=== PATIENT | male | born 1930 | race Caucasian/White ===

== ENCOUNTER 2017-01-12 11:20 | Inpatient (IN) | payer MEDICARE ==
[~2017-01-12] VITALS: Ht 188 cm; Wt 92.2 kg
[~2017-01-12 11:20] MED LIST: ASPI81TA85 PO; ATOR1TAB19 PO; BABY81CH OR; CELEBREX; CEPACOL OR; GLIM2TAB PO; GLIMEPIRIDE OR; LEVA750T PO; LISI10TA4 PO; LISI20TA5 OR; NAME10TA PO; SERT-141 PO; TRAVATAN OU; TYLE325T5 PO; VICO5TAB OR; VICODIN OR; VITA20008 PO; XANA0.25 PO
[2017-01-12 15:28] VITALS: BP 171/90
[2017-01-12 15:29] VITALS: BP 142/90
[2017-01-12] MEDS ORDERED: ONDANSETRON 4MG/2ML VIAL (J2405) IV PRN (15:45)
[2017-01-12] MEDS ORDERED: ACETAMINOPHEN 650 MG SUPP PR PRN (15:45)
[2017-01-12] MEDS: PANTOPRAZOLE 40MG INJ (PROTONIX) (C9113) IV SCH (17:22)
[2017-01-12 17:30] LABS: BASO % 0.2 % (0.0-1.0); EOS # 0.1 K/mm3 (0.0-0.50); EOS % 0.8 % (0.0-3.0); LARGE UNSTAINED CELL # 0.1 K/mm3 (0.0-0.4); LARGE UNSTAINED CELL % 1.2 % (0.0-4.0); LYMPH # 1.5 K/mm3 (1.5-4.5); LYMPH % 16.2 % (24.0-44.0); MEAN CORPUSCULAR HEMOGLOBIN 29.5 pg (27.0-33.0); MEAN CORPUSCULAR HGB CONC 31.2 g/dl (32.0-36.5); MEAN CORPUSCULAR VOLUME 94.4 fl (80.0-96.0); MONO # 0.5 K/mm3 (0.0-0.8); MONO % 5.9 % (0.0-5.0); NEUTROPHILS # 6.9 K/mm3 (1.8-7.7); NEUTROPHILS % 75.7 % (36.0-66.0); PLATELET COUNT, AUTOMATED 143 k/mm3 (150-450); RED CELL DISTRIBUTION WIDTH 13.6 % (11.5-14.5); WHITE BLOOD COUNT 9.1 K/mm3 (4.0-10.0)
[2017-01-12 18:05] LABS: ALBUMIN 2.8 GM/DL (3.2-5.2); ALBUMIN/GLOBULIN RATIO 0.85 (1.00-1.93); ALKALINE PHOSPHATASE 55 U/L (45-117); ALT/SGPT 20 U/L (12-78); ANION GAP 7 MEQ/L (8-16); AST/SGOT 25 U/L (15-37); BILIRUBIN,TOTAL 0.4 MG/DL (0.2-1.0); BLOOD UREA NITROGEN 16 MG/DL (7-18); CALCIUM LEVEL 8.5 MG/DL (8.8-10.2); CARBON DIOXIDE LEVEL 32 MEQ/L (21-32); CHLORIDE LEVEL 113 MEQ/L (98-107); CREATININE FOR GFR 0.84 MG/DL (0.70-1.30); GLOMERULAR FILTRATION RATE > 60.0 (>35); GLUCOSE, FASTING 90 MG/DL (83-110); MAGNESIUM LEVEL 2.1 MG/DL (1.8-2.4); SODIUM LEVEL 152 MEQ/L (136-145); TOTAL PROTEIN 6.1 GM/DL (6.4-8.2)
--- NOTE | 2017-01-12 18:33 | REP ---
Portable chest x-ray: Single view: History: Pneumonia. Comparison study: 09/22/2016. Findings: Cardiomegaly is again observed. There is an area of increased density in the right base consistent with infiltrate and/or atelectasis. This obscures the lateral aspect of the right hemidiaphragm. Remaining lung headley are clear. EKG monitoring electrodes overlie the chest. Impression: Infiltrate versus atelectasis right base. Signed by Rich Cuello MD 01/12/2017 08:06 P
[2017-01-12] MEDS ORDERED: D5W 1,000 ML IV SCH (19:00)
[2017-01-12] MEDS ORDERED: LORazepam 2 MG/ML VIAL (J2060) IV PRN (19:30)
[2017-01-12 20:00] VITALS: BP 165/77
[2017-01-12] MEDS ORDERED: FUROSEMIDE 100 MG/10 ML VIAL (J1940) IV ONE (20:00)
[2017-01-12] MEDS ORDERED: ACETAMINOPHEN TAB 650MG DOSE (2X325MG) PO PRN (20:00)
--- NOTE | 2017-01-12 20:29 | PHACANCOPD ---
PHARMACY VANCOMYCIN DOSING Pt Demographics Demographics Patient Age:86 , Weight:97.000 , Gender: male Adjusted Body Weight Date: 01/12/17, Adjusted Body Weight: Kg Events Past 24 Hours Events Past 24 Hours: YES: Fever, NO: Change in CrCl, Dialysis, Diuretic Therapy, Elevation in WBC, Other, Pending Diagnostics, Pending Procedures Vancomycin Vancomycin indication: decubitis buttocks/sacrum Vancomycin Target Ranges: 15-20 mcg/ml Vancomycin Load Y/N: No Load Dose Date Time Vancomycin Load Dose: Date: Time: Vancomycin Dose Date: 01/12/17. Current Vancomycin Dose: [1g IV q12h] Intermittent Dosing?: No Labs Labs Item Value Date Time White Blood Count 9.1 K/mm3 01/12/17 1717 Creatinine 0.84 MG/DL 01/12/17 1717 Vital Signs Label Value Date Time Patient Temperature 99.4 degrees F 01/12/17 1528 Temperature Source Tympanic 01/12/17 1528 Micro Microbiology 01/12/17 Blood Culture, Received Pending Creatinine Clearance Date:01/12/17. Creatinine Clearance: [72 ml/min]. Pending Labs Vanco trough tonight Assessment and Plan Maintaining Current Dose?: Yes Reason for dose change: Other Pharmacist Note Pharmacist Note Date: 01/12/17. Pharmacist note: pt was transferred from [facility] for a fever of unknown origin, presumed UTI that did not improve since 01/09. Pt has been on IV Zosyn, Rocephin, Vancomycin, Clindamycin and oral fluconazole (800mg loading dose 01/11 pm). Pt is bedridden and requires 24 hour care. He was started on vancomycin 1g IV q12h on 01/09, vancomycin trough drawn before the 3rd dose was 16.8. His last dose of vancomycin was ~10am this morning. Blood and urine cultures from [facility] showed no growth. I have scheduled a trough for tonight to further guide dosing. Jaylan Saravia.D. Jan 12, 2017 20:28
[2017-01-12] MEDS: MEROPENEM INJ 1 GM in D5W MINI-BAG PLUS 100 ML IV SCH (20:58)
[2017-01-12] MEDS ORDERED: levETIRAcetam 250MG TABLET (KEPPRA) PO SCH (21:00)
[2017-01-12] MEDS: ALPRAZolam 0.5 MG TAB PO SCH (21:00)
[2017-01-12] MEDS ORDERED: VANCOMYCIN HCL 1,000 MG, VIAL MATE ADAPTER 1 EACH in D5W 250 ML IV SCH (21:00)
[2017-01-12] MEDS ORDERED: ALPRAZolam 0.5 MG TAB PO SCH (21:00)
[2017-01-12] MEDS ORDERED: ATORVASTATIN 10 MG TAB PO SCH (21:00)
[2017-01-12] MEDS: ACETAMINOPHEN 650 MG SUPP PR PRN (21:36)
[2017-01-12] MEDS: levETIRAcetam INJection 500 MG in D5W MINI-BAG PLUS 100 ML IV SCH (22:29)
[2017-01-12 23:03] LABS: ABG BASE EXCESS 10.3 (-2.0-2.0); ABG HCO3 35.6 MEQ/L (22.0-26.0); ABG PARTIAL PRESSURE O2 71.6 mmHg (75.0-100.0); ABG STANDARD HCO3 34.1 MEQ/L (22.0-26.0); ABG TOTAL CO2 37.1 MEQ/L (23.0-31.0); ABG pH (ARTERIAL) 7.479 UNITS (7.350-7.450)
[2017-01-12] MEDS: VANCOMYCIN HCL 1,000 MG, VIAL MATE ADAPTER 1 EACH in D5W 250 ML IV SCH (23:22)
[2017-01-13] VITALS (14 sets, daily range): BP systolic 96–166; BP diastolic 55–95
--- NOTE | 2017-01-13 01:23 | HPE ---
DATE OF ADMISSION: 01/12/2017 PRIMARY CARE PHYSICIAN: Dr. Girish Soliman CHIEF COMPLAINT: Patient was transferred from [facility] for persistent fever, in spite of inpatient treatment for five days and new onset seizures. PAST MEDICAL HISTORY: 1. Dementia. Patient is bed bound, has 08/06 care. 2. Diabetes diet controlled. 3. Hypertension. 4. Hyperlipidemia. 5. Anxiety. 6. Sacral decubitus ulcers, two. 7. Progressive decline over the past year. HISTORY OF PRESENT ILLNESS: This is an 86-year-old male with advanced dementia, bed bound with limited verbal communication, but able to recognize family members and caretakers as per patient's son, prior to coming ill. He had a sore throat eight days ago. Primary care provider (PCP) was called and was prescribed azithromycin on January 04. On January 06, patient had a fever of 101. PCP was again called and was advised to go to the emergency room. Patient was taken to [facility] Emergency Department (ED). There, he was admitted on 01/07/2017, with a diagnosis of urinary tract infection (UTI) and sepsis. Patient at that time had a WBC of 21.6, lactate of 2.7, and urine RBCs and trace blood. Patient was not verbal at that point. Patient was started on Rocephin and Zosyn. His creatinine was 1.2. Concerns were also expressed about <<3:30>> . Patient after getting IV antibiotics for 2-3 days, the patient's condition as per caregiver and family present at bedside did improve and patient was almost near to his baseline mental status as well as was eating better, and the plan was to discharge him soon. However, on 01/09 and 01/10, patient had multiple seizure episodes and after that his mental status again worsened. He began spiking fevers of 101 to 102. He became short of breath. Patient had a chest x-ray done which did show some development of new atelectasis, so today, the patient was transferred here for unknown etiology of fever, concerns regarding aspiration pneumonia versus meningitis, or other viral infection. Patient's urine culture from [facility] is negative. Patient is chronically on Xanax at home. The dose of the Xanax was halved in the hospital and family expressed concerns whether that could be the etiology of the seizures. Patient did have a previous history of seizures related to hypoglycemia about a year ago. Patient had repeat chest x-ray done at [facility] on 01/11, which showed right and left upper lobe opacities as well left basilar atelectasis. Post seizure patient had a CT of the brain done which showed a small hyperdense focus in the left occipital lobe without any surrounding findings of edema, as per radiologist's read, it is more probably focus of gliosis rather than bleed. Patient received multiple antibiotics at [facility] over the past six days including IV Zosyn, Rocephin, vancomycin, clindamycin and Diflucan. His blood culture from there was negative to date. A Wilson was placed in [facility] for urinary incontinence. On admission to our hospital, patient has been afebrile although patient is tachypneic at 22-24 per minute with shallow breaths. Patient's lab work shows a normal white count of 9.1. Patient is hypernatremic with a sodium of 152. Patient's chest x-ray showed right base infiltrate versus atelectasis. Patient was nonverbal, but following people with his eyes and trying to follow commands. Patient has been admitted for fever possibly due to aspiration pneumonia. There is also concern of fever from skin infection as patient does have two decubitus ulcers. There is also some concern for meningitis; however, at this point has had five different antibiotics and patient is afebrile, so I did not pursue lumbar puncture (LP) tonight. If the patient again starts to have fever, we will consider getting an LP. PAST SURGICAL HISTORY: 1. Cholecystectomy. 2. Colon resection. ALLERGIES: No known drug allergies. SOCIAL HISTORY: Occasionally used to drink alcohol. There is no history of recreational drug use. FAMILY HISTORY: There is family history of progressive dementia in siblings. ADVANCED DIRECTIVES: Patient is a DO NOT RESUSCITATE, DO NOT INTUBATE. HOME MEDICATIONS: - aspirin 81 mg daily - atorvastatin 10 mg at bedtime - cholecalciferol 2000 units by mouth daily - lisinopril 10 mg by mouth daily - Namenda 10 mg by mouth twice a day - sertraline 50 mg at bedtime - Xanax 0.5 mg every morning, 0.75 mg in the afternoon, and 0.75 mg at bedtime as reported by caregiver and family member. Patient was getting Xanax 0.5 twice a day at the other hospital. REVIEW OF SYSTEMS: All 10-point review of systems were negative except those mentioned in history of present illness (HPI). PHYSICAL EXAMINATION: VITAL SIGNS: Blood pressure 142/90, pulse 80, temperature 99.4, pulse oximetry 98% with two liters nasal cannula, and respiratory rate 22. GENERAL: Patient is awake, but nonverbal, but does follow people around the room with his eyes. HEENT: Normocephalic, atraumatic. Moist mucous membranes. There is a hematoma on the tongue which he had bitten during a seizure. CHEST: Bilateral basilar crackles, more on the right than the left. CARDIOVASCULAR: S1, S2. ABDOMEN: Soft, nontender. Bowel sounds present. EXTREMITIES: 1+ to 2+ pedal edema. LABORATORY DATA: WBC 9.1, hemoglobin 13.6, platelets 143. Sodium 152, potassium 4, chloride 113, bicarbonate 32, BUN 16, creatinine 0.8, glucose 90, calcium 8.5. Liver function tests normal. Total protein 6.1, albumin 2.8, TSH 0.475. Chest x-ray as mentioned above, right-sided infiltrate versus atelectasis. ASSESSMENT AND PLAN: This is an 86-year-old male admitted for persistent fever from a different hospital. PLAN: 1. Fever, etiology most probably aspiration pneumonia after patient had seizure. However, cannot absolutely rule out meningitis. At present, we will treat the patient with meropenem and vancomycin to cover also for skin infection as patient has decubitus ulcers. If fever recurs, we will consider lumbar puncture (LP) tomorrow. 2. Seizure, etiology unknown. Patient did have a previous history of seizure a year ago for hypoglycemia. Patient did have two CT scans done at [facility] which showed some gliosis-like changes in the occipital lobe. This could be a seizure focus. We will place the patient on Keppra 500 twice a day. We will check Keppra levels and adjust dosage. We will consult neurology, get an electroencephalogram (EEG. We will consider an MRI if the patient can tolerate. 3. Hypertension. Patient takes lisinopril. At present, blood pressure is adequately controlled. We will consider restarting tomorrow. 4. Hyponatremia. Possibly due to poor oral intake. We will start the patient on dextrose. 5. Fluid overload. Unknown whether patient has history of congestive heart failure (CHF). We will give one dose of Lasix to see if it improves with respiration. 6. Anxiety. We will continue the patient on Xanax 0.5 mg three times a day. 7. Urinary incontinence. Patient has indwelling Wilson at this point. 8. Dementia. Bed bound with limited verbal communication. At present, because of acute infection going on, patient's cognitive capabilities have worsened. However, we will hold Namenda at this point. 9. Hyperlipidemia. We will continue with atorvastatin. 10. Diet. We will place the patient on pureed diet and thickened liquid diet. 11. Diabetes, diet controlled. We will check patient's fingersticks every six hours. 12. History of colon cancer, status post colon resection twice. No issues at this point. 13. Psoriasis. Stable at this point. 14. History of morbid obesity and obstructive sleep apnea (NONI). Does not use continuous positive airway pressure (CPAP). 15. Deep vein thrombosis (DVT) prophylaxis has been ordered. 16. Gastrointestinal (GI) prophylaxis has been ordered.
[2017-01-13] MEDS: ACETAMINOPHEN 650 MG SUPP PR PRN ×3 (03:28→22:00)
[2017-01-13] MEDS ORDERED: FUROSEMIDE 40 MG/4 ML VIAL (J1940) IV ONE ×2 (03:30→19:00)
[2017-01-13] MEDS: MEROPENEM INJ 1 GM in D5W MINI-BAG PLUS 100 ML IV SCH ×3 (03:52→20:12)
[2017-01-13] MEDS ORDERED: KCL 10MEQ IN 100ML SWI (KRUN) 10 MEQ in APPROPRIATE DILUENT 1 EA IV ONE ×4 (04:15→21:15)
--- NOTE | 2017-01-13 04:23 | IPNPDOC ---
Date Seen The patient was seen on 01/13/17. Progress Note SUBJECTIVE: I was called to evaluate the patient. He has had over 3L of fluid output since the last dose of Lasix. His current Wt is 94kg. Pt is nonverbal. In Home Nanny Sarah reports that he has had increased labored breathing in the last hour. OBJECTIVE PHYSICAL EXAMINATION: VITAL SIGNS: Please see below. GENERAL: Moderate distress. RESPIRATORY: shallow breaths, rapid breathing. coarse sounds throughout. ASSESSMENT AND PLAN: 86 y/o M in respiratory distress. We will continue to diuresis him with further with IV Lasix. Patient sounds fluid overloaded. We will take another EKG. Echo ordered for tomorrow, no recent echo has been documented. Will recheck labs, BNP, ABG, Cardiac markers. Will review CXR when available. VS, I&O, [facility] Vital Signs/I&O Vital Signs Date Time Temp Pulse Resp B/P Pulse Ox O2 Delivery O2 Flow Rate FiO2 01/13/17 03:20 101.9 113 42 142/90 89 Nasal Cannula 3.0 I&O- Last 24 Hours up to 6 AM 01/13/17 06:00 Intake Total 535 ml Output Total 5000 ml Balance -4465 ml Laboratory Data 24H LABS Laboratory Tests 2 01/12/17 17:17: Blood Urea Nitrogen 16, Creatinine 0.84, Sodium Level 152H, Potassium Level 4.0 , Chloride Level 113H, Carbon Dioxide Level 32, Calcium Level 8.5L, Aspartate Amino Transf (AST/SGOT) 25, Alanine Aminotransferase (ALT/SGPT) 20, Alkaline Phosphatase 55, Total Bilirubin 0.4, Total Protein 6.1L, Albumin 2.8L, Albumin/ Globulin Ratio 0.85L, Anion Gap 7L, B-Type Natriuretic Peptide 70.7, White Blood Count 9.1, Red Blood Count 5.32, Hemoglobin 15.7, Hematocrit 50.2, Mean Corpuscular Volume 94.4, Mean Corpuscular Hemoglobin 29.5, Mean Corpuscular Hemoglobin Concent 31.2L, Red Cell Distribution Width 13.6, Platelet Count 143L , Neutrophils (%) (Auto) 75.7H, Lymphocytes (%) (Auto) 16.2L, Monocytes (%) ( Auto) 5.9H, Eosinophils (%) (Auto) 0.8, Basophils (%) (Auto) 0.2, Neutrophils # (Auto) 6.9, Lymphocytes # (Auto) 1.5, Monocytes # (Auto) 0.5, Eosinophils # ( Auto) 0.1, Basophils # (Auto) 0.0, Glomerular Filtration Rate > 60.0, Large Unclassified Cells # 0.1, Large Unclassified Cells % 1.2, Magnesium Level 2.1, Thyroid Stimulating Hormone (TSH) 0.475 01/12/17 20:55: Vancomycin Level Trough 20.4H 01/12/17 22:56: Arterial Blood pH 7.479H, Arterial Blood Partial Pressure CO2 49.0H, Arterial Blood Partial Pressure O2 71.6L, Arterial Blood Total CO2 37.1H, Arterial Blood HCO3 35.6H, Arterial Blood Base Excess 10.3H, Arterial Blood Oxygen Saturation 96.0, Blood Gas Bicarbonate Standard 34.1H, Lactic Acid (Sepsis) 0.9 01/12/17 23:26: Bedside Glucose (Misc Panel) 105 01/13/17 02:51: Bedside Glucose (Misc Panel) 98 CBC/BMP Laboratory Tests 01/12/17 17:17 Calcium Level 8.5 L, Aspartate Amino Transf (AST/SGOT) 25, Alanine Aminotransferase (ALT/SGPT) 20, Alkaline Phosphatase 55, Total Bilirubin 0.4, Total Protein 6.1 L, Albumin 2.8 L, Red Blood Count 5.32, Mean Corpuscular Volume 94.4, Mean Corpuscular Hemoglobin 29.5, Mean Corpuscular Hemoglobin Concent 31.2 L, Red Cell Distribution Width 13.6, Neutrophils (%) (Auto) 75.7 H , Lymphocytes (%) (Auto) 16.2 L, Monocytes (%) (Auto) 5.9 H, Eosinophils (%) ( Auto) 0.8, Basophils (%) (Auto) 0.2, Neutrophils # (Auto) 6.9, Lymphocytes # ( Auto) 1.5, Monocytes # (Auto) 0.5, Eosinophils # (Auto) 0.1, Basophils # (Auto) 0.0 Microbiology Microbiology 01/12/17 Blood Culture, Received Pending 01/13/17 Respiratory Virus Panel (PCR) (CARLOS) - Final, Complete 01/13/17 Urine Culture, Received Pending GME ATTESTATION GME ATTESTATION My preceptor for this patient encounter was physically present in the building during the encounter and was fully available. As needed, all aspects of the patient interview, examination, medical decision making process, and medical care plan development were reviewed and approved by the preceptor. Preceptor is aware and concurs with the plan as stated in the body of this note and will attest to such by his/her cosignature. MAGO MAJANO DO Jan 13, 2017 04:22
[2017-01-13 04:43] LABS: ABG BASE EXCESS 12.3 (-2.0-2.0); ABG HCO3 38.6 MEQ/L (22.0-26.0); ABG PARTIAL PRESSURE CO2 54.9 mmHg (35.0-45.0); ABG PARTIAL PRESSURE O2 58.9 mmHg (75.0-100.0); ABG TOTAL CO2 40.3 MEQ/L (23.0-31.0); ABG pH (ARTERIAL) 7.465 UNITS (7.350-7.450)
[2017-01-13 04:49] LABS: BASO % 0.4 % (0.0-1.0); EOS # 0.2 K/mm3 (0.0-0.50); EOS % 1.1 % (0.0-3.0); LARGE UNSTAINED CELL # 0.1 K/mm3 (0.0-0.4); LARGE UNSTAINED CELL % 1.1 % (0.0-4.0); LYMPH # 2.1 K/mm3 (1.5-4.5); LYMPH % 14.6 % (24.0-44.0); MEAN CORPUSCULAR HEMOGLOBIN 30.5 pg (27.0-33.0); MEAN CORPUSCULAR HGB CONC 32.8 g/dl (32.0-36.5); MEAN CORPUSCULAR VOLUME 92.7 fl (80.0-96.0); MONO # 0.9 K/mm3 (0.0-0.8); MONO % 6.9 % (0.0-5.0); NEUTROPHILS # 10.2 K/mm3 (1.8-7.7); NEUTROPHILS % 75.9 % (36.0-66.0); PLATELET COUNT, AUTOMATED 183 k/mm3 (150-450); RED CELL DISTRIBUTION WIDTH 13.7 % (11.5-14.5); WHITE BLOOD COUNT 13.4 K/mm3 (4.0-10.0)
--- NOTE | 2017-01-13 05:30 | REPUSA ---
CLINICAL HISTORY: Respiratory distress. COMMENTS: AP view of chest reveals mild atelectatic airspace disease of the left shoulder. The cardiac silhouette is enlarged. The mediastinum and pulmonary vessels appear normal. Aorta is tor tuous. Degenerative changes are noted in the thoracic spine. IMPRESSION: Mild atelectatic airspace disease of the left lower lobe. Enlarged cardiac silhouette. Tortuous aorta. Thank you for your kind referral of this patient.
[2017-01-13 05:37] LABS: ANION GAP 6 MEQ/L (8-16); BLOOD UREA NITROGEN 13 MG/DL (7-18); CARBON DIOXIDE LEVEL 38 MEQ/L (21-32); CHLORIDE LEVEL 105 MEQ/L (98-107); CREATININE FOR GFR 0.83 MG/DL (0.70-1.30); GLOMERULAR FILTRATION RATE > 60.0 (>35); GLUCOSE, FASTING 123 MG/DL (83-110); POTASSIUM SERUM 2.9 MEQ/L (3.5-5.1); SODIUM LEVEL 149 MEQ/L (136-145)
[2017-01-13] MEDS ORDERED: POTASSIUM CHLORIDE 10 MEQ SR TABLET PO ONE (07:30)
[2017-01-13] MEDS: KCL 10MEQ IN 100ML SWI (KRUN) 10 MEQ in APPROPRIATE DILUENT 1 EA IV SCH ×6 (08:03→14:46)
[2017-01-13 08:19] LABS: ABG BASE EXCESS 5.9 (-2.0-2.0); ABG HCO3 33.8 MEQ/L (22.0-26.0); ABG PARTIAL PRESSURE O2 80.1 mmHg (75.0-100.0); ABG STANDARD HCO3 29.8 MEQ/L (22.0-26.0); ABG TOTAL CO2 35.7 MEQ/L (23.0-31.0); ABG pH (ARTERIAL) 7.352 UNITS (7.350-7.450)
[2017-01-13 08:22] LABS: ABG PARTIAL PRESSURE CO2 62.4 mmHg (35.0-45.0)
[2017-01-13] MEDS: ASPIRIN 81 MG CHEW TABLET PO SCH (09:00)
[2017-01-13] MEDS: QUEtiapine FUMARATE 25 MG TAB PO SCH (09:00)
[2017-01-13] MEDS: AMPICILLIN SOD 2 GM in D5W MINI-BAG PLUS 100 ML IV SCH ×4 (09:00→21:29)
[2017-01-13] MEDS: ALPRAZolam 0.5 MG TAB PO SCH ×3 (09:00→21:00)
[2017-01-13] MEDS ORDERED: ASPIRIN 300 MG SUPP PR SCH (09:00)
[2017-01-13] MEDS ORDERED: ASPIRIN 81 MG ENTERIC TAB PO SCH (09:00)
[2017-01-13 10:20] LABS: ABG BASE EXCESS 9.9 (-2.0-2.0); ABG HCO3 37.4 MEQ/L (22.0-26.0); ABG PARTIAL PRESSURE O2 119.4 mmHg (75.0-100.0); ABG STANDARD HCO3 33.7 MEQ/L (22.0-26.0); ABG TOTAL CO2 39.3 MEQ/L (23.0-31.0)
[2017-01-13 10:23] LABS: ABG PARTIAL PRESSURE CO2 57.7 mmHg (35.0-45.0); ABG pH (ARTERIAL) 7.402 UNITS (7.350-7.450)
[2017-01-13] MEDS: VANCOMYCIN HCL 1,000 MG, VIAL MATE ADAPTER 1 EACH in D5W 250 ML IV SCH (11:00)
[2017-01-13] MEDS: levETIRAcetam INJection 500 MG in D5W MINI-BAG PLUS 100 ML IV SCH (12:10)
--- NOTE | 2017-01-13 12:13 | ECGEPIP ---
Stationary ECG Study [facility] Test Date: 2017-01-12 Pat Name: KATINA DILL Department: U Room: [place] [address] Gender: M Toe Lining Closer: HOWARD : 1930 Requested By: TOÑO NUNES Order Number: [id number] Reading MD: Rocky Brown Measurements Intervals [place] Rate: 92 P: IL: 0 QRS: 54 QRSD: 134 T: -32 QT: 403 QTc: 500 Interpretive Statements ATRIAL FIBRILLATION WITH ABERRANT CONDUCTION OR VENTRICULAR PREMATURE COMPLEXES Intraventricular conduction delay Nonspecific ST-T wave abnormalities Electronically Signed On 01-13-2017 12:13:05 EST by Rocky Brown
--- NOTE | 2017-01-13 12:18 | REP ---
MR BRAIN WITHOUT CONTRAST: HISTORY: Seizures. COMPARISON: 05/11/2014 A small area of increased signal intensity on diffusion and T2-weighted images is present in the left cerebellum. This is decreased in signal intensity on ADC images and is consistent with an acute infarction. Increased signal intensity on diffusion and T2-weighted images is present in the left temporal and occipital lobes. The signal intensity is isointense on ADC images. These findings are consistent with subacute infarctions. There is mass effect with partial effacement of the overlying cortical sulci and body , atrium and temporal horns of the left lateral ventricle. There is no midline shift. Areas of increased signal intensity on T2-weighted images are present in the periventricular and subcortical white matter. This represents small vessel ischemic disease. Punctate areas of decreased signal intensity on T2 gradient echo images are present in the temporal and parietal lobes. This represents hemosiderin secondary to chronic micro hemorrhage. The ventricular system and cortical sulci are dilated consistent with mild volume loss. There is no extracerebral collection. Mucosal thickening is present in the right maxillary sinus. IMPRESSION: 1. There is a small acute infarction in the left cerebellum. 2. There are subacute infarctions in the left temporal and occipital lobes without midline shift. Signed by Husam Clark MD 01/13/2017 12:25 P
[2017-01-13] MEDS: ACYCLOVIR IV SCH ×2 (13:28→17:42)
[2017-01-13] MEDS: NS IV SCH ×2 (13:28→17:42)
--- NOTE | 2017-01-13 14:30 | IPNPDOC ---
Text Note Date of Service The patient was seen on 01/13/17. NOTE Subjective: Patient is an 86 male with a PMHx of Dementia, DM2, HTN, DLP, Anxiety , Sacral decubitus ulcers (Stage 3), who was transferred from [facility] for persistent fevers. Patient was there for fever of 5 days. Initially he was treated for a UTI with Rocephin, but there was no resolution of his fever and his antibiotic regimen was upgraded to Vancomycin and Zosyn. Patient was also noted to have several episodes of seizures since he arrived. Since the fevers didn't resolve he was transferred here. Patient's family noted that he had received about 3 days of treatment for suspected strep through with Azithromycin before presenting to [facility]. Patient has baseline dementia and is stable able to be verbal, however family has noted that this has decreased significantly. Patient was admitted here for suspected aspiration pneumonia and started on vancomycin and meropenem. Patient was seen and examined at the bedside. He remains non-verbal. Patient's family has noted that he has had lip lesions, cluster of ulcers that begun to scar at this point. He has had altered mental status for about a week Objective: Vitals (See below) General: Lying in bed, appear uncomfortable, Lethargic, non-verbal HEENT: NC, AT, Scared area on superior lip CVS: Tachycardic, +S1S2 Lungs: Fair air entry b/l, -w/r/r Abdomen: Soft, ND, NT, +BSx4 Extremities: +PPx4, Trace edema, -Calf tenderness Neuro: +Nuchal rigidity, Unable to assess Assessment and plan: 1. Fever - possibly 2/2 meningitis, possibly 2/2 aspiration pneumonia - Presented with fever of 5 days, altered mental status and nuchal rigidity - Physical reveals some nuchal rigidity, lungs appear clear - MRI head reveals acute infarcts - Will get lumbar puncture - Blood cultures and urine cultures pending - Respiratory panel negative - No elevation in lactic acid - c/w Meropenem, Vancomycin, - Added Ampicillin and Acyclovir; given that he has oral ulcers and possibility of meningitis - Will consult Neurology and Infectious disease 2. Acute metabolic encephalopathy - likely 2/2 #1 3. Acute cerebrovascular accident - possibly 2/2 embolic phenomenon - Presented to altered mental status - unable to assess movement of extremities - MRI reveals small acute infarction in L cerebellum, subacute infarcts in L temporal and occipital lobes - Started ASA 81 and increased dose of Atorvastatin to 80 - Will consult neurology 4. Acute hypoxic respiratory failure - possibly 2/2 acute decompensated CHF - Had episode of dyspnea overnight with RR in 40s and decreasing saturation - CXR 01/13: mild atelectatic airspace of LLL - Currently at -5 L output - s/p Furosemide 40 IV x 1 dose 5. Pressure ulcers on Sacrum (Stage 3) - present from admission 6. Seizure disorder - no further episodes of seizures recorded - EEG pending - c/w Keppra 500 BID - c/w aspiration precautions - Neurology consult pending 7. HTN - BP well controlled - continue to hold Lisinopril 8. Hypernatremia - possibly 2/2 iatrogenic fluid overload - improving - s/p D5W - s/p Lasix 9. Anxiety - c/w xanax 0.5 TID 7. Urinary incontinence - c/w indwelling Wilson 8. 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 DLP - c/w statin 10 DM2 - c/w ISS 11. Hx of colon CA 12. Psoriasis 13. Hx of NONI - no CPAP use 14. Morbid obesity 15. GI prophylaxis - c/w protonix 16. DVT prophylaxis - c/w heparin VS,Fishbone, I+O VS, Fishbone, I+O Laboratory Tests 01/12/17 17:17 Calcium Level 8.5 L, Aspartate Amino Transf (AST/SGOT) 25, Alanine Aminotransferase (ALT/SGPT) 20, Alkaline Phosphatase 55, Total Bilirubin 0.4, Total Protein 6.1 L, Albumin 2.8 L, Red Blood Count 5.32, Mean Corpuscular Volume 94.4, Mean Corpuscular Hemoglobin 29.5, Mean Corpuscular Hemoglobin Concent 31.2 L, Red Cell Distribution Width 13.6, Neutrophils (%) (Auto) 75.7 H , Lymphocytes (%) (Auto) 16.2 L, Monocytes (%) (Auto) 5.9 H, Eosinophils (%) ( Auto) 0.8, Basophils (%) (Auto) 0.2, Neutrophils # (Auto) 6.9, Lymphocytes # ( Auto) 1.5, Monocytes # (Auto) 0.5, Eosinophils # (Auto) 0.1, Basophils # (Auto) 0.0 2/28/17 04:27 Red Blood Count 4.88, Mean Corpuscular Volume 92.7, Mean Corpuscular Hemoglobin 30.5, Mean Corpuscular Hemoglobin Concent 32.8, Red Cell Distribution Width 13.7 , Neutrophils (%) (Auto) 75.9 H, Lymphocytes (%) (Auto) 14.6 L, Monocytes (%) ( Auto) 6.9 H, Eosinophils (%) (Auto) 1.1, Basophils (%) (Auto) 0.4, Neutrophils # (Auto) 10.2 H, Lymphocytes # (Auto) 2.1, Monocytes # (Auto) 0.9 H, Eosinophils # (Auto) 0.2, Basophils # (Auto) 0.0 01/13/17 04:58 Calcium Level 8.0 L, Total Creatine Kinase 33 L Vital Signs Date Time Temp Pulse Resp B/P Pulse Ox O2 Delivery O2 Flow Rate FiO2 01/13/17 08:00 98.2 112 35 126/88 97 Nasal Cannula 3.0 I&O- Last 24 Hours up to 6 AM 01/13/17 06:00 Intake Total 535 ml Output Total 5000 ml Balance -4465 ml EMMANUEL RIDDLE MD Jan 13, 2017 14:30
[2017-01-13] MEDS ORDERED: POLYVINYL ALCOHOL OPHTH SOLN 15 ML(LIQUITEARS) OU PRN (14:45)
[2017-01-13 14:51] LABS: ERYTHROCYTE SEDIMENTATION RATE 41 mm/hr (0-30)
[2017-01-13 15:42] LABS: GLUCOSE CSF 51 MG/DL (40-75)
[2017-01-13 15:48] LABS: RBC CSF AUTO 274 /mm3 (0-0); WBC CSF AUTO 143 /mm3 (0-10)
[2017-01-13 15:50] LABS: RBC CSF AUTO 10 /mm3 (0-0); WBC CSF AUTO 219 /mm3 (0-10)
[2017-01-13 15:53] LABS: APPEARANCE, CSF CLEAR (CLEAR); COLOR, CSF COLORLESS (COLORLESS); CSF TUBE# CELL CNT TUBE 4
[2017-01-13 15:53] LABS: APPEARANCE, CSF CLEAR (CLEAR); COLOR, CSF COLORLESS (COLORLESS); CSF DIFF IF INDICATED? YES (NO); CSF TUBE# CELL CNT TUBE 1
[2017-01-13 15:54] LABS: CSF DIFF IF INDICATED? YES (NO)
[2017-01-13 15:54] LABS: CSF DILUENT LOT # 6165
[2017-01-13 15:55] LABS: CSF DILUENT LOT # 6165
[2017-01-13] MEDS ORDERED: levETIRAcetam INJection 500 MG in D5W MINI-BAG PLUS 100 ML IV ONE (17:15)
--- NOTE | 2017-01-13 17:33 | RO ---
DATE OF PROCEDURE: 01/13/2017 PREPROCEDURE DIAGNOSIS: Encephalopathy and fever. POSTPROCEDURE DIAGNOSIS: Encephalopathy and fever. OPERATIVE PROCEDURE: Diagnostic lumbar puncture. SURGEON: Merly Zimmerman MD PLANT OPERATIONS ENGINEER: Selena Smith MD SEDATION: None. VENTILATION: 50% VentiMask. ESTIMATED BLOOD LOSS: Minimal. ANESTHETIC: 1% local lidocaine. DESCRIPTION OF PROCEDURE: The patient placed in left lateral decubitus position with back arched. [place] was palpated. Site is cleaned with Betadine and prepped sterilely. Physicians gowned up sterilely as well. Site was cleaned and 1% lidocaine was injected first superficial, then deep paying attention to the landmarks. Subsequently the needle was inserted. Cerebrospinal fluid (CSF) was obtained and collected. Subsequently the needle was removed. Dressing was placed. The patient was placed back in supine position. The patient tolerated the procedure with no complications. Fluids were sent off for lab testing. Opening pressure not done.
[2017-01-13 17:34] LABS: ABG BASE EXCESS 7.6 (-2.0-2.0); ABG HCO3 34.7 MEQ/L (22.0-26.0); ABG PARTIAL PRESSURE O2 102.6 mmHg (75.0-100.0); ABG STANDARD HCO3 31.4 MEQ/L (22.0-26.0); ABG TOTAL CO2 36.5 MEQ/L (23.0-31.0); ABG pH (ARTERIAL) 7.387 UNITS (7.350-7.450)
[2017-01-13] MEDS: PANTOPRAZOLE 40MG INJ (PROTONIX) (C9113) IV SCH (18:41)
--- NOTE | 2017-01-13 19:22 | EEG ---
DATE OF PROCEDURE: 01/13/2017 REFERRING PHYSICIAN: Dr. Rodrigo Ludwig DIAGNOSIS: Seizure EEG #: 17-16 HISTORY: Patient is an 86-year-old male with history of dementia and new onset seizures. This EEG was done to rule out epileptic potential. He is currently on meropenem, vancomycin, Keppra, acyclovir, ampicillin, Lipitor, Seroquel, etc. TECHNICAL DESCRIPTION: This digital EEG was recorded by 21 scalp, ear and two EKG electrodes and was reviewed in bipolar and referential montages following reformatting in 10-20 international electrode placement system. INTERPRETATION: The patient was noted to be mostly in nonverbal drowsy state with labored breathing. Background rhythm consisted of 5-6 Hz theta activity. Left frontal and temporal periodic lateralized epileptiform discharges were noted. No clear electrographic or clinical seizures were recorded. Stage II sleep was reviewed and showed slight attenuation in left hemisphere. Hyperventilation could not be performed. Photic stimulation remained unremarkable. EKG revealed sinus tachycardia. CONCLUSION: This EEG in a non-verbal drowsy state is abnormal due to presence of generalized slowing and disorganization of background consistent with nonspecific diffuse cerebral dysfunction such as seen in dementia and encephalopathy. In addition left frontal and temporal periodic lateralized epileptiform discharges (PLEDS) were noted consistent with focal cortical structural or functional abnormality with epileptic potential. PLEDS can be seen in herpes simplex encephalitis, stroke, or any other focal, structural abnormality. Clinical correlation is recommended. MTDD
[2017-01-13 20:01] LABS: ANION GAP 5 MEQ/L (8-16); BLOOD UREA NITROGEN 16 MG/DL (7-18); CALCIUM LEVEL 7.3 MG/DL (8.8-10.2); CARBON DIOXIDE LEVEL 38 MEQ/L (21-32); CHLORIDE LEVEL 102 MEQ/L (98-107); GLOMERULAR FILTRATION RATE > 60.0 (>35); GLUCOSE, FASTING 233 MG/DL (83-110); POTASSIUM SERUM 3.3 MEQ/L (3.5-5.1); SODIUM LEVEL 145 MEQ/L (136-145)
[2017-01-13] MEDS: ATORVASTATIN 20 MG TAB PO SCH (21:00)
[2017-01-13] MEDS: levETIRAcetam INJection 1,000 MG in D5W MINI-BAG PLUS 100 ML IV SCH (21:29)
[2017-01-13] MEDS ORDERED: cefTRIAXone SOD 2 GM in D5W MINI-BAG PLUS 50 ML IV SCH (22:00)
--- NOTE | 2017-01-13 22:09 | ECGEPIP ---
Stationary ECG Study [facility] Test Date: 2017-01-13 Pat Name: KATINA DILL Department: PCU Room: [place] [address] Gender: M Solid Die Cutter: HOWARD : 1930 Requested By: GUSTAVO García Order Number: [id number] Reading MD: Rocky Brown Measurements Intervals [place] Rate: 106 P: MD: 0 QRS: 50 QRSD: 137 T: -27 QT: 356 QTc: 474 Interpretive Statements ATRIAL FIBRILLATION WITH RAPID VENTRICULAR RESPONSE INTRAVENTRICULAR CONDUCTION DELAY Nonspecific ST-T wave abnormalities perhaps more pronounced laterally than on tracing from 01-12-17 Electronically Signed On 01-13-2017 22:09:35 EST by Rocky Brown
--- NOTE | 2017-01-13 23:02 | ECHO ---
DATE OF PROCEDURE: 01/13/2017 REFERRING PHYSICIAN: Dr. Ludwig INDICATION: Dyspnea. HEIGHT: 188 cm WEIGHT: 94 kg. DIMENSIONS: IVS: 1.5 LV: 3.8 LVPW: 3.4 LA: 4.7 Aorta: 3.8 Ascending aorta: 4.1 FINDINGS: The study is of rather limited technical quality with poor acoustic windows and poor cooperation on the patient's part due to underlying altered mental status. The left ventricle is of normal size and probably hyperdynamic contractility. I estimate ejection fraction (EF) around 65-70%, but visualization was limited and I consequently easily could have missed subtle wall motion abnormality. Right ventricle does not appear enlarged. Both atria are at least mildly enlarged. Aortic valve was poorly visualized. It is at least mildly sclerotic. Mitral valve appears grossly normal. Tricuspid and pulmonic valve also appear grossly normal. There is no pericardial effusion. Inferior vena cava is of normal caliber and appropriately collapses with respiration indicative of normal or possibly even low central venous pressure. Aortic root is borderline dilated at 3.8 cm and the same applies for visualized segment of ascending aorta measuring 4.1 cm. Aortic arch and abdominal aorta were not well seen. Doppler interrogation reveals no aortic stenosis or insufficiency. There is mild mitral insufficiency and trace tricuspid insufficiency. Calculated pulmonary artery pressure is within normal limits. Evaluation of diastolic function is inconclusive due to poor quality of both mitral inflow and tissue Doppler imaging of mitral annulus. I am not even certain what is the underlying rhythm. It is either sinus with frequent ectopy or possibly even atrial fibrillation. CONCLUSIONS: 1. Study is of fair technical quality. 2. Normal left ventricle (LV) size with overall normal LV systolic function. Mild to moderate left ventricular hypertrophy (LVH). Subtle wall motion abnormalities cannot be ruled out. 3. No hemodynamically significant valvular disease. 4. Mildly dilated aortic root and ascending aorta (maximum 4.1 cm). 5. Normal or possibly even low central venous pressure. 6. Normal pulmonary artery pressure. COMMENTS: Subacute bacterial endocarditis (SBE) prophylaxis is not recommended.
[2017-01-14] VITALS (13 sets, daily range): BP systolic 105–162; BP diastolic 65–90
[2017-01-14] MEDS: AMPICILLIN SOD 2 GM in D5W MINI-BAG PLUS 100 ML IV SCH ×3 (00:16→08:58)
[2017-01-14] MEDS: NS IV SCH ×3 (01:05→17:58)
[2017-01-14] MEDS: ACYCLOVIR IV SCH ×3 (01:05→17:58)
[2017-01-14] MEDS: ACETAMINOPHEN 650 MG SUPP PR PRN ×3 (02:00→20:25)
[2017-01-14] MEDS ORDERED: MORPHINE 2 MG/ML 1ML SYRINGE IV ONE ×3 (03:30→22:00)
--- NOTE | 2017-01-14 03:37 | IPNPDOC ---
Date Seen The patient was seen on 01/14/17. Progress Note SUBJECTIVE: Talked with his son about his father's comfort level. He wanted to try something to help with his pain. Was agreeable to trying a low dose morphine. ASSESSMENT AND PLAN: 86 y/o M admitted for fevers. Pt appears to be in mild distress today. We discussed the possibility that morphine may lead to respiratory depression which may lead to increased risk of mortality. The patient's son expressed understanding. Ordered one time dose of 1mg morphine. We will monitor for respiratory depression. They will discuss with primary team in the AM if we should continue/increase the pain regimen. VS, I&O, 24H, Fishbone Vital Signs/I&O Vital Signs Date Time Temp Pulse Resp B/P Pulse Ox O2 Delivery O2 Flow Rate FiO2 01/14/17 00:00 Venturi Mask 15.0 50 01/14/17 00:00 100.2 97 40 140/83 97 I&O- Last 24 Hours up to 6 AM 01/14/17 06:00 Intake Total 1438.8 ml Output Total 2200 ml Balance -761.2 ml Laboratory Data 24H LABS Laboratory Tests 2 01/13/17 04:27: Arterial Blood pH 7.465H, Arterial Blood Partial Pressure CO2 54.9H, Arterial Blood Partial Pressure O2 58.9L, Arterial Blood Total CO2 40.3H, Arterial Blood HCO3 38.6H, Arterial Blood Base Excess 12.3H, Arterial Blood Oxygen Saturation 92.3L, B-Type Natriuretic Peptide 180H, White Blood Count 13.4H, Red Blood Count 4.88, Hemoglobin 14.9, Hematocrit 45.3, Mean Corpuscular Volume 92.7, Mean Corpuscular Hemoglobin 30.5, Mean Corpuscular Hemoglobin Concent 32.8, Red Cell Distribution Width 13.7, Platelet Count 183, Neutrophils (%) (Auto) 75.9H, Lymphocytes (%) (Auto) 14.6L, Monocytes (%) (Auto) 6.9H, Eosinophils (%) (Auto) 1.1, Basophils (%) (Auto) 0.4, Neutrophils # (Auto) 10.2H, Lymphocytes # (Auto) 2.1, Monocytes # (Auto) 0.9H, Eosinophils # (Auto) 0.2, Basophils # (Auto) 0.0, Blood Gas Bicarbonate Standard 36.0H, Erythrocyte Sedimentation Rate 41H, Large Unclassified Cells # 0.1, Large Unclassified Cells % 1.1 01/13/17 04:58: Anion Gap 6L, C-Reactive Protein, Quantitative 1.50H, Blood Urea Nitrogen 13, Creatinine 0.83, Sodium Level 149H, Potassium Level 2.9#*L, Chloride Level 105, Carbon Dioxide Level 38H, Calcium Level 8.0L, Total Creatine Kinase 33L, Creatine Kinase MB 1.0, Creatine Kinase MB Relative Index 3.03, Glomerular Filtration Rate > 60.0, Troponin I 0.03 01/13/17 08:02: Arterial Blood pH 7.352, Arterial Blood Partial Pressure CO2 62.4*H, Arterial Blood Partial Pressure O2 80.1, Arterial Blood Total CO2 35.7H, Arterial Blood HCO3 33.8H, Arterial Blood Base Excess 5.9H, Arterial Blood Oxygen Saturation 95.7, Blood Gas Bicarbonate Standard 29.8H 01/13/17 08:38: Lactic Acid (Sepsis) 1.1 01/13/17 10:11: Arterial Blood pH 7.402, Arterial Blood Partial Pressure CO2 57.7H, Arterial Blood Partial Pressure O2 119.4H, Arterial Blood Total CO2 39.3H, Arterial Blood HCO3 37.4H, Arterial Blood Base Excess 9.9H, Arterial Blood Oxygen Saturation 98.6, Blood Gas Bicarbonate Standard 33.7H 01/13/17 15:14: CSF Appearance CLEAR, CSF Cell Count Tube # TUBE 4, CSF Color COLORLESS, CSF Eosinophils % 0.0, CSF Lymphocytes % 35.0H, CSF Monocytes % 12.0H, CSF Neutrophils % 53.0H, CSF RBC 10H, CSF WBC 219H 01/13/17 15:15: CSF Appearance CLEAR, CSF Cell Count Tube # TUBE 1, CSF Color COLORLESS, CSF Eosinophils % 0.0, CSF Lymphocytes % 29.0H, CSF Monocytes % 10.0H, CSF Neutrophils % 61.0H, CSF RBC 274H, CSF WBC 143H, CSF Glucose 51, CSF Total Protein 176.5H, CSF Tube Number TUBE 2 01/13/17 17:08: Arterial Blood pH 7.387, Arterial Blood Partial Pressure CO2 59.0H, Arterial Blood Partial Pressure O2 102.6H, Arterial Blood Total CO2 36.5H, Arterial Blood HCO3 34.7H, Arterial Blood Base Excess 7.6H, Arterial Blood Oxygen Saturation 98.3, Blood Gas Bicarbonate Standard 31.4H 01/13/17 19:05: Anion Gap 5L, Blood Urea Nitrogen 16, Creatinine 0.90, Sodium Level 145, Potassium Level 3.3L, Chloride Level 102, Carbon Dioxide Level 38H, Calcium Level 7.3L, Glomerular Filtration Rate > 60.0 CBC/BMP Laboratory Tests 01/13/17 04:27 Red Blood Count 4.88, Mean Corpuscular Volume 92.7, Mean Corpuscular Hemoglobin 30.5, Mean Corpuscular Hemoglobin Concent 32.8, Red Cell Distribution Width 13.7 , Neutrophils (%) (Auto) 75.9 H, Lymphocytes (%) (Auto) 14.6 L, Monocytes (%) ( Auto) 6.9 H, Eosinophils (%) (Auto) 1.1, Basophils (%) (Auto) 0.4, Neutrophils # (Auto) 10.2 H, Lymphocytes # (Auto) 2.1, Monocytes # (Auto) 0.9 H, Eosinophils # (Auto) 0.2, Basophils # (Auto) 0.0 01/13/17 04:58 Calcium Level 8.0 L, Total Creatine Kinase 33 L 01/13/17 19:05 Calcium Level 7.3 L Microbiology Microbiology 01/13/17 Blood Culture, Received Pending 01/12/17 Blood Culture - Preliminary, Resulted No growth after 24 hours . All specim... 01/13/17 Gram Stain - Final, Resulted 01/13/17 CSF Culture, Resulted Pending 01/13/17 , Resulted Pending 01/13/17 Acid Fast Stain, Received Pending 01/13/17 Mycobacterial Culture, Received Pending 01/13/17 Fungal Smear, Received Pending 01/13/17 Fungal Culture, Received Pending 01/13/17 Viral Culture, Received Pending 01/13/17 Respiratory Virus Panel (PCR) (ACRLOS) - Final, Complete 01/13/17 Urine Culture, Received Pending GME ATTESTATION GME ATTESTATION My preceptor for this patient encounter was physically present in the building during the encounter and was fully available. As needed, all aspects of the patient interview, examination, medical decision making process, and medical care plan development were reviewed and approved by the preceptor. Preceptor is aware and concurs with the plan as stated in the body of this note and will attest to such by his/her cosignature. MAGO MAJANO DO Jan 14, 2017 03:36
[2017-01-14 05:05] LABS: BASO % 0.2 % (0.0-1.0); EOS # 0.1 K/mm3 (0.0-0.50); EOS % 0.5 % (0.0-3.0); LARGE UNSTAINED CELL # 0.3 K/mm3 (0.0-0.4); LARGE UNSTAINED CELL % 1.7 % (0.0-4.0); LYMPH # 2.1 K/mm3 (1.5-4.5); MEAN CORPUSCULAR HEMOGLOBIN 29.5 pg (27.0-33.0); MEAN CORPUSCULAR HGB CONC 31.7 g/dl (32.0-36.5); MEAN CORPUSCULAR VOLUME 92.9 fl (80.0-96.0); MONO # 0.8 K/mm3 (0.0-0.8); MONO % 5.1 % (0.0-5.0); NEUTROPHILS # 12.6 K/mm3 (1.8-7.7); NEUTROPHILS % 79.5 % (36.0-66.0); PLATELET COUNT, AUTOMATED 188 k/mm3 (150-450); RED CELL DISTRIBUTION WIDTH 13.2 % (11.5-14.5); WHITE BLOOD COUNT 15.9 K/mm3 (4.0-10.0)
[2017-01-14 05:18] LABS: ANION GAP 3 MEQ/L (8-16); BLOOD UREA NITROGEN 14 MG/DL (7-18); CALCIUM LEVEL 7.8 MG/DL (8.8-10.2); CARBON DIOXIDE LEVEL 41 MEQ/L (21-32); CHLORIDE LEVEL 104 MEQ/L (98-107); CREATININE FOR GFR 0.82 MG/DL (0.70-1.30); GLOMERULAR FILTRATION RATE > 60.0 (>35); GLUCOSE, FASTING 111 MG/DL (83-110); POTASSIUM SERUM 3.5 MEQ/L (3.5-5.1); SODIUM LEVEL 148 MEQ/L (136-145)
[2017-01-14] MEDS ORDERED: VANCOMYCIN HCL 1,000 MG, VIAL MATE ADAPTER 1 EACH in D5W 250 ML IV SCH (07:00)
[2017-01-14 07:31] LABS: ABG BASE EXCESS 9.5 (-2.0-2.0); ABG PARTIAL PRESSURE CO2 55.8 mmHg (35.0-45.0); ABG PARTIAL PRESSURE O2 81.7 mmHg (75.0-100.0); ABG STANDARD HCO3 33.3 MEQ/L (22.0-26.0); ABG TOTAL CO2 37.7 MEQ/L (23.0-31.0); ABG pH (ARTERIAL) 7.427 UNITS (7.350-7.450)
[2017-01-14 08:38] LABS: CSF GROUP B STREP NEGATIVE (NEGATIVE); CSF H. INFLUENZA NEGATIVE (NEGATIVE); CSF N MENINGITIDIS ACYW135 NEGATIVE (NEGATIVE); CSF STREP PNUEMO NEGATIVE (NEGATIVE)
[2017-01-14] MEDS: QUEtiapine FUMARATE 25 MG TAB PO SCH (08:57)
[2017-01-14] MEDS: ALPRAZolam 0.5 MG TAB PO SCH (08:57)
[2017-01-14] MEDS: ASPIRIN 81 MG CHEW TABLET PO SCH (08:57)
[2017-01-14] MEDS: levETIRAcetam INJection 1,000 MG in D5W MINI-BAG PLUS 100 ML IV SCH ×2 (08:58→20:33)
[2017-01-14] MEDS ORDERED: LORazepam 2 MG/ML VIAL (J2060) IV SCH ×2 (10:45→14:00)
[2017-01-14] MEDS ORDERED: NS 1,000 ML IV SCH (10:45)
--- NOTE | 2017-01-14 11:15 | ECGEPIP ---
Stationary ECG Study [facility] Test Date: 2017-01-14 Pat Name: KATINA DILL Department: Room: [place] [address] Gender: M Legal Analyst: : 1930 Requested By: EMMANUEL RIDDLE Order Number: [id number] Reading MD: Rocky Brown Measurements Intervals [place] Rate: 106 P: VA: 0 QRS: 82 QRSD: 133 T: -27 QT: 346 QTc: 459 Interpretive Statements ATRIAL FIBRILLATION WITH RAPID VENTRICULAR RESPONSE Right bundle branch block Nonspecific ST-T wave abnormalities Electronically Signed On 01-14-2017 11:15:28 EST by Rocky Brown
--- NOTE | 2017-01-14 12:29 | CR ---
DATE OF CONSULTATION: 01/13/2017 Asked to consult by hospitalist for evaluation of meningitis/encephalitis. HISTORY OF PRESENT ILLNESS: Mr. Us is a 86-year-old gentleman who has a history of dementia, bed bound with 24-hour care, diabetes diet controlled, hypertension, hyperlipidemia. The patient was brought in to [facility] with fever. His caregiver had noted a fever at 101. He was brought into the emergency room to [facility] when he was admitted for 3 days. His white count initially was 21,000. Lactate was 2.7. He was treated for presumed urinary tract infection. He was started on Rocephin and Zosyn. He started to improve after 2-3 days but then on 01/09, the patient developed seizures, recurrent fever up to 102, shortness of breath. A chest x-ray was done, concern for new atelectasis. The patient was transferred for further evaluation of fever of unknown origin with no improvement with IV antibiotics. The patient's urine culture at [facility] was negative. He arrived yesterday to [facility]. He was in progressive care unit (PCU) and then transferred to intensive care unit (ICU) this afternoon. He had a lumbar puncture which was done today which shows pleocytosis with neutrophilic predominance and elevated total protein. He has been started on broad-spectrum antibiotics and acyclovir for presumptive encephalitis. Past medical history as previously mentioned includes: Dementia. Diet controlled diabetes. Hypertension. Hyperlipidemia. Anxiety disorder on chronic Xanax. Sacral decubitus. Colon cancer. PAST SURGICAL HISTORY: Cholecystectomy and colon resection. ALLERGIES: No known drug allergies. SOCIAL HISTORY: He used to drink alcohol. He does not smoke. Lives at home with 24-hour care. He has a DO NOT RESUSCITATE/DO NOT INTUBATE order. MEDICATIONS: - vancomycin 1 gram IV every 12 hours - Lipitor 80 mg by mouth daily at bedtime - Keppra 1000 mg IV every 12 hours - acyclovir 940 mg IV every 8 hours - Seroquel 25 mg by mouth daily - Ampicin 2 grams IV every 4 hours - aspirin 81 mg daily - alprazolam 0.5 mc by mouth three times daily - meropenem 1 gram IV every 12 hours - Protonix 40 mg IV every 24 hours LABORATORY DATA: White count yesterday was 9.1, today was 13.4, hemoglobin 14.9, hematocrit 45.3, platelets 183, 75% neutrophils, 15% lymphocytes, 7% monocytes. ESR is 41, sodium 145, potassium 3.3, chloride 102, bicarb 38, BUN 16, creatinine 0.9, glucose 233, calcium 7.3. CPK 33, CRP 1.5, BNP 180. Blood culture done on 01/12 was no growth after 24 hours. Respiratory panel was negative. AFB followup smear and cultures are pending. CSF had no cells or organisms seen, culture is pending. Vancomycin trough was 20.4 yesterday. Herpes serology was sent. CSF shows 143 white cells, 274 reds, 61% neutrophils, 29% lymphocytes, 10% monocytes, total protein is 176.5 and glucose is 51. Imaging study: MRI without contrast shows a small acute infarction in the left cerebellum and there are subacute infarctions in the left temporal and occipital lobes without midline shift. Small vessel ischemic disease. On physical exam, he is a frail looking elderly man in respiratory discomfort. Temperature is 100.7, pulse 103, respirations 41, blood pressure 133/95, O2 sat 92% on 50% Ventimask. Heart: Normal S1, S2 tachycardic. No murmurs appreciated. Lungs: Tachypneic with some exterior rhonchi. No wheezes or rales. Abdomen is soft, nontender with a large midline scar well healed. Extremities: Trace edema. No clubbing or cyanosis. Oropharynx very dry. Neck: Stiff, although could not examine him properly. He had bilateral conjunctiva erythema. There are ulcerations on his upper lip. He has evidence of probable herpetic eruption of his lips on exam. The patient could have herpes encephalitis, although he has a neurophilic predominance on his CSF 5 days after presentation which makes it more like a partially treated bacterial meningitis as he has received now so far 5 days of IV antibiotics. Possibilities could be pneumococcus Listeria in an elderly is definitely in this differential as well, less likely meningococcus or Haemophilus. PLAN: Discontinue IV meropenem. Switch to Rocephin 2 grams every 12 hours. Continue vancomycin 1 gram every 12 hours. Continue IV acyclovir. Monitor for crystalluria and kidney disease as the patient is on multiple nephrotoxic drugs. At his age, he will definitely develop some element of kidney failure. Case has been discussed with Dr. Gregg and his MRI finding. The CSF results will be available to us tomorrow and we can de-escalate therapy based on CSF encephalitis meningitis panel.
--- NOTE | 2017-01-14 13:25 | IPNPDOC ---
Text Note Date of Service The patient was seen on 01/14/17. NOTE Subjective: Patient is an 86 male with a PMHx of Dementia, DM2, HTN, DLP, Anxiety , Sacral decubitus ulcers (Stage 3), who was transferred from [facility] for persistent fevers. Patient was there for fever of 5 days. Initially he was treated for a UTI with Rocephin, but there was no resolution of his fever and his antibiotic regimen was upgraded to Vancomycin and Zosyn. Patient was also noted to have several episodes of seizures since he arrived. Since the fevers didn't resolve he was transferred here. Patient's family noted that he had received about 3 days of treatment for suspected strep through with Azithromycin before presenting to [facility]. Patient has baseline dementia and is stable able to be verbal, however family has noted that this has decreased significantly. Patient was admitted here for suspected aspiration pneumonia and started on vancomycin and meropenem. Patient's family has noted that he has had lip lesions, cluster of ulcers that begun to scar at this point. He has had altered mental status for about a week. Patient was seen and examined at the bedside. He remains non-verbal. Patient's family remains at the bedside. Both of his sons are present. I have expressed to them that his prognosis remains guarded at this time. They are aware that he may not have a good outcome. Objective: Vitals (See below) General: Lying in bed, appear uncomfortable, Lethargic, non-verbal HEENT: NC, AT, Scared area on superior lip CVS: Tachycardic, +S1S2 Lungs: Fair air entry b/l, -w/r/r Abdomen: Soft, ND, NT, +BSx4 Extremities: +PPx4, Trace edema, -Calf tenderness Neuro: +Nuchal rigidity Assessment and plan: 1. 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 - Presented with fever of 5 days, altered mental status and nuchal rigidity - Physical reveals some nuchal rigidity, lungs appear clear, scarring on upper lip - MRI head reveals acute infarcts and possible findings consistent with viral encephalitis - Lumbar Puncture consistent with viral meningitis, HSV PCR positive - Blood cultures and urine cultures remain negative - Respiratory panel negative - No elevation in lactic acid - s/p Antibiotics (Meropenem, Vancomycin, Ampicillin) - c/w Acyclovir - Started IV fluid hydration to avoid crystal induced nephropathy (re: Acyclovir ) - Neurology and Infectious disease following - appreciate their input 2. Acute metabolic encephalopathy - likely 2/2 #1 3. Acute cerebrovascular accident - possibly 2/2 embolic phenomenon - Presented to altered mental status - MRI reveals small acute infarction in L cerebellum, subacute infarcts in L temporal and occipital lobes - c/w Atorvastatin to 80 - Neurology following - appreciate their input 4. Acute hypoxic respiratory failure - possibly 2/2 acute decompensated CHF - Had episode of dyspnea overnight with RR in 40s and decreasing saturation - CXR 01/13: mild atelectatic airspace of LLL - Currently at -5 L output - s/p Furosemide 40 IV x 1 dose 5. Pressure ulcers on Sacrum (Stage 3) - present from admission 6. Seizure disorder - no further episodes of seizures recorded - EEG reveals evidence of Dementia or Encephalitis - c/w Keppra 500 BID - c/w aspiration precautions - Neurology following - appreciate their input 7. HTN - BP well controlled - continue to hold Lisinopril 8. Hypernatremia - possibly 2/2 iatrogenic fluid overload - improving - s/p D5W - s/p Lasix 9. Anxiety - s/p xanax 0.5 TID - c/w Ativan 1mg Q6H 7. Urinary incontinence - c/w indwelling Wilson 8. 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 DLP - c/w statin 10 DM2 - c/w ISS 11. Hx of colon CA 12. Psoriasis 13. Hx of NONI - no CPAP use 14. Morbid obesity 15. GI prophylaxis - c/w protonix 16. DVT prophylaxis - c/w heparin Code Status: - DNR / DNI Disposition: - I have discussed with the family regarding prognosis - They are aware that he may not survive this hospital course - Patient's family wanted to continue therapy but still wanted to give medications to make him comfortable - I have expressed to them that Morphine may provide comfort, but may cause respiratory depression and may hasten his respiratory collapse - Patient's family is well aware of the risks and they understand that he may not survive regardless VS,Fishbone, I+O VS, Fishbone, I+O Laboratory Tests 01/13/17 19:05 Calcium Level 7.3 L 01/14/17 04:52 Calcium Level 7.8 L, Red Blood Count 4.75, Mean Corpuscular Volume 92.9, Mean Corpuscular Hemoglobin 29.5, Mean Corpuscular Hemoglobin Concent 31.7 L, Red Cell Distribution Width 13.2, Neutrophils (%) (Auto) 79.5 H, Lymphocytes (%) ( Auto) 13.0 L, Monocytes (%) (Auto) 5.1 H, Eosinophils (%) (Auto) 0.5, Basophils (%) (Auto) 0.2, Neutrophils # (Auto) 12.6 H, Lymphocytes # (Auto) 2.1, Monocytes # (Auto) 0.8, Eosinophils # (Auto) 0.1, Basophils # (Auto) 0.0 Vital Signs Date Time Temp Pulse Resp B/P Pulse Ox O2 Delivery O2 Flow Rate FiO2 01/14/17 12:08 44 01/14/17 12:00 101.0 126 117/84 90 Aerosol Mask 100 01/14/17 04:00 15.0 I&O- Last 24 Hours up to 6 AM 01/14/17 06:00 Intake Total 1807.6 ml Output Total 2525 ml Balance -717.4 ml EMMANUEL RIDDLE MD Jan 14, 2017 13:25
[2017-01-14] MEDS ORDERED: SLF 3 ML SYR IV PRN (14:00)
[2017-01-14] MEDS: SLF 3 ML SYR IV SCH ×2 (14:00→22:05)
[2017-01-14] MEDS: PANTOPRAZOLE 40MG INJ (PROTONIX) (C9113) IV SCH (16:15)
--- NOTE | 2017-01-14 18:39 | REP ---
CT BRAIN WITHOUT CONTRAST: 01/14/2017: COMPARISON: MRI brain 01/13/2017, CT brain 11/23/2015. CLINICAL HISTORY: Left cerebellar stroke, subacute infarctions in left temporal and occipital lobes on MRI yesterday. 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 FINDINGS: Soft-tissue and bone window settings are reviewed for each slice level. The ventricles are midline, dilated and proportionate to the diffuse cerebral atrophy. Atrophy is greatest in the temporal and frontal lobes. There is hypodense left temporal and occipital lobe. No evidence of midline shift. The basilar cisterns remain patent. Partial effacement of the sylvian fissure on the left compared to the right. Some of the left temporal and occipital sulci are also effaced. On image 12 of series 201 there is a subtle hyperdense focus to the left of midline in the occipital lobe. This is not present on the previous exam but there is an abnormal signal focus on the gradient echo images yesterday secondary to micro hemorrhage. I do not see other CT signs of blood. Basal ganglia show no acute infarct. Heterogeneous white matter representing chronic small vessel ischemic changes noted. Brainstem unremarkable. Cerebellum shows a significant atrophy and a hypodense area in the left cerebellar hemisphere representing the acute infarct, measuring almost 2 x 1 cm in greatest diameters. Basal cisterns preserved. The mastoids are intact. The sinuses show mucous retention cyst floor of the right maxillary sinus with the sinuses otherwise clear. The calvarium and skull base show no fracture or focal lesion. IMPRESSION: 1. Subacute infarcts in the left temporal and occipital lobes without midline shift. 2. Small focus of punctate hemorrhage in the cortex of the left occipital lobe posteriorly as seen on gradient echo MR image yesterday. 3. Subacute infarct left cerebellar lobe at 2 x 1 cm. No new infarct, new micro hemorrhage, mass or mass effect. 4. Moderate atrophy diffusely with ventriculomegaly, stable. No other significant finding. Signed by Shaun Christianson MD 01/14/2017 07:31 P
--- NOTE | 2017-01-14 18:44 | IPN ---
DATE: 01/14/2017 Mr. sU is not doing well. He is unresponsive. He still has a fever up to 101. He is on 100% FIO2 with oxygen saturations only 90%. His son, , is at the bedside as well as his caregiver, Debbi. They understand the poor prognosis. Antibiotics have been discontinued. Intravenous (IV) acyclovir was continued. At this point, a dose of 940 mg every 8 hours. Cerebrospinal fluid (CSF) culture was positive for herpes simplex by polymerase chain reaction (PCR), negative for any bacterial pathogens. PHYSICAL EXAMINATION: HEART: Normal S1, S2, tachycardiac. LUNGS: Expiratory rhonchi and grunting. ABDOMEN: Soft, nontender. IMPRESSION: 1. Herpes encephalitis with very poor prognosis and MRI imaging suggestive of acute infarction of the cerebellum and subacute infarction of the left temporal and occipital lobes. 2. 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 3. Hypoxia, but chest x-ray has no evidence of pneumonia. PLAN:: Continue IV acyclovir. Discussion about comfort measures only (CHEMICAL ENGINEERING INTERN) is being entertained with the family. Will continue with morphine and acyclovir.
[2017-01-14] MEDS: ATORVASTATIN 20 MG TAB PO SCH (20:02)
[2017-01-14] MEDS: LORazepam 2 MG/ML VIAL (J2060) IV SCH (20:33)
[2017-01-14] MEDS ORDERED: MORPHINE 10MG/0.5ML ORAL CONCENTRATE SOLUTION U/D SL PRN (21:30)
[2017-01-14] MEDS ORDERED: SCOPOLAMINE 1.5 MG TRANSDERMAL TD PRN (21:30)
[2017-01-14] MEDS: LORazepam 2 MG/ML VIAL (J2060) IV PRN (23:57)
[2017-01-15] MEDS: MORPHINE 10MG/0.5ML ORAL CONCENTRATE SOLUTION U/D SL PRN ×7 (01:18→09:19)
[2017-01-15] MEDS: LORazepam 2 MG/ML VIAL (J2060) IV PRN ×3 (03:07→14:55)
[2017-01-15] MEDS: ACETAMINOPHEN 650 MG SUPP PR PRN (03:35)
[2017-01-15] MEDS: SLF 3 ML SYR IV SCH ×2 (05:21→13:48)
[2017-01-15] MEDS: LORazepam 2 MG/ML VIAL (J2060) IV SCH (07:54)
[2017-01-15] MEDS: levETIRAcetam INJection 1,000 MG in D5W MINI-BAG PLUS 100 ML IV SCH (07:55)
[2017-01-15] MEDS ORDERED: NS 1,000 ML IV SCH ×2 (09:37→10:45)
[2017-01-15] MEDS ORDERED: NALOXONE INJ 0.4 MG/1 ML VIAL (J2310) IV PRN (09:45)
[2017-01-15] MEDS ORDERED: EPIDURAL/PCA KEYS XX PRN ×2 (09:45→10:00)
[2017-01-15] MEDS ORDERED: diphenhydrAMINE INJ 50MG/ML VIAL (J1200) IV PRN (09:45)
[2017-01-15] MEDS ORDERED: MORPHINE PCA 1MG/ML 100ML CADD IV PRN (09:45)
[2017-01-15] MEDS ORDERED: NALBUPHINE HCL 10 MG/ML AMP (J2300) IV PRN (09:45)
[2017-01-15] MEDS ORDERED: MORPHINE SULFATE CADD 100 MG in APPROPRIATE DILUENT 1 EA IV SCH (10:00)
--- NOTE | 2017-01-15 11:48 | IPNPDOC ---
Text Note Date of Service The patient was seen on 01/15/17. NOTE Subjective: Patient is an 86 male with a PMHx of Dementia, DM2, HTN, DLP, Anxiety , Sacral decubitus ulcers (Stage 3), who was transferred from [facility] for persistent fevers. Patient was there for fever of 5 days. Initially he was treated for a UTI with Rocephin, but there was no resolution of his fever and his antibiotic regimen was upgraded to Vancomycin and Zosyn. Patient was also noted to have several episodes of seizures since he arrived. Since the fevers didn't resolve he was transferred here. Patient's family noted that he had received about 3 days of treatment for suspected strep through with Azithromycin before presenting to [facility]. Patient has baseline dementia and is stable able to be verbal, however family has noted that this has decreased significantly. Patient was admitted here for suspected aspiration pneumonia and started on vancomycin and meropenem. Patient's family has noted that he has had lip lesions, cluster of ulcers that begun to scar at this point. He has had altered mental status for about a week. On 01/14/17 patient was made HOMICIDE INVESTIGATOR by the family. Patient was seen at the bedside. Family was present. Discussed with them about the patient's current condition. Answered their questions. Objective: Vitals (No longer recorded) General: Lying in bed, appear comfortable, lethargic, non-verbal Assessment and plan: 1. 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 - Presented with fever of 5 days, altered mental status and nuchal rigidity - Initial physical reveals some nuchal rigidity, lungs appeared clear, scarring on upper lip - MRI head reveals acute infarcts and possible findings consistent with viral encephalitis - Lumbar Puncture consistent with viral meningitis, HSV PCR positive - Blood cultures and urine cultures remain negative, Respiratory panel negative - No elevation in lactic acid - s/p Antibiotics (Meropenem, Vancomycin, Ampicillin), s/p Acyclovir - s/p IV fluid hydration to avoid crystal induced nephropathy (re: Acyclovir) - Neurology and Infectious disease following - appreciate their input - Patient has been made HOMICIDE INVESTIGATOR and all therapy has been discontinued 2. Acute metabolic encephalopathy - likely 2/2 #1 3. Acute cerebrovascular accident - possibly 2/2 embolic phenomenon - Presented to altered mental status - MRI reveals small acute infarction in L cerebellum, subacute infarcts in L temporal and occipital lobes - c/w Atorvastatin to 80 - Neurology following - appreciate their input 4. Acute hypoxic respiratory failure - possibly 2/2 acute decompensated CHF - Had episode of dyspnea overnight with RR in 40s and decreasing saturation - CXR 01/13: mild atelectatic airspace of LLL - s/p Furosemide 40 IV x 1 dose 5. Pressure ulcers on Sacrum (Stage 3) - present from admission 6. Seizure disorder - c/w Keppra 1,000 BID 7. HTN 8. Hypernatremia - possibly 2/2 iatrogenic fluid overload 9. Anxiety 7. Urinary incontinence - c/w indwelling Wilson 8. 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 DLP - c/w statin 10 DM2 - c/w ISS 11. Hx of colon CA 12. Psoriasis 13. Hx of NONI - no CPAP use 14. Morbid obesity 15. GI prophylaxis - off protonix 16. DVT prophylaxis - off heparin Code Status: - DNR / DNI Disposition: - on 01/14/17 patient's family had agreed to make the patient HOMICIDE INVESTIGATOR - the majority of his medications were discontinued - he was continued with pain control; which i have increased to a morphine drip at this time - will c/w Atropine for secretions and Ativan PRN for agitation VS,Fishbone, I+O VS, Fishbone, I+O Vital Signs Date Time Temp Pulse Resp B/P Pulse Ox O2 Delivery O2 Flow Rate FiO2 01/15/17 06:12 68 Aerosol Mask 10.0 98 01/14/17 22:05 38 01/14/17 21:00 113 155/78 01/14/17 20:00 101.0 I&O- Last 24 Hours up to 6 AM 01/15/17 06:00 Intake Total 1746 ml Output Total 550 ml Balance 1196 ml EMMANUEL RIDDLE MD Jan 15, 2017 11:48
--- NOTE | 2017-01-15 16:47 | DS.PDOC ---
Discharge Summary General Date of Admission Jan 12, 2017 at 15:36 Date of Discharge 01/15/2017 Primary Care Physician: Marin Burrows Attending Physician: EMMANUEL RIDDLE MD Specialist/Consultants Involve Kimo Fisher MD, Samah O. MD Discharge Summary PROCEDURES PERFORMED DURING STAY: Lumbar Puncture COMPLICATIONS/CHIEF COMPLAINT: Fever Unknown DISCHARGE DIAGNOSES: 1. 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 Acute metabolic encephalopathy - likely 2/2 #1 3. Acute cerebrovascular accident - possibly 2/2 embolic phenomenon 4. Acute hypoxic respiratory failure - possibly 2/2 acute decompensated CHF HISTORY OF PRESENT ILLNESS: Patient is an 86 male with a PMHx of Dementia, DM2, HTN, DLP, Anxiety , Sacral decubitus ulcers (Stage 3), who was transferred from [facility] for persistent fevers. Patient was there for fever of 5 days. Initially he was treated for a UTI with Rocephin, but there was no resolution of his fever and his antibiotic regimen was upgraded to Vancomycin and Zosyn. Patient was also noted to have several episodes of seizures since he arrived. Since the fevers didn't resolve he was transferred here. Patient's family noted that he had received about 3 days of treatment for suspected strep through with Azithromycin before presenting to [facility]. Patient has baseline dementia and is stable able to be verbal, however family has noted that this has decreased significantly. Patient was admitted here for suspected aspiration pneumonia and started on vancomycin and meropenem. Patient's family has noted that he has had lip lesions, cluster of ulcers that begun to scar at this point. He has had altered mental status for about a week. On 01/14/17 patient was made PLASTIC JOINT MAKER by the family. Patient was seen at the bedside. Family was present. Discussed with them about the patient's current condition. Answered their questions. HOSPITAL COURSE: 1. 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 - Presented with fever of 5 days, altered mental status and nuchal rigidity - Initial physical reveals some nuchal rigidity, lungs appeared clear, scarring on upper lip - MRI head reveals acute infarcts and possible findings consistent with viral encephalitis - Lumbar Puncture consistent with viral meningitis, HSV PCR positive - Blood cultures and urine cultures remain negative, Respiratory panel negative - No elevation in lactic acid - s/p Antibiotics (Meropenem, Vancomycin, Ampicillin), s/p Acyclovir - s/p IV fluid hydration to avoid crystal induced nephropathy (re: Acyclovir) - Neurology and Infectious disease following - appreciate their input - Patient has been made PLASTIC JOINT MAKER and all therapy has been discontinued 2. Acute metabolic encephalopathy - likely 2/2 #1 3. Acute cerebrovascular accident - possibly 2/2 embolic phenomenon - Presented to altered mental status - MRI reveals small acute infarction in L cerebellum, subacute infarcts in L temporal and occipital lobes - c/w Atorvastatin to 80 - Neurology following - appreciate their input 4. Acute hypoxic respiratory failure - possibly 2/2 acute decompensated CHF - Had episode of dyspnea overnight with RR in 40s and decreasing saturation - CXR 01/13: mild atelectatic airspace of LLL - s/p Furosemide 40 IV x 1 dose 5. Pressure ulcers on Sacrum (Stage 3) - present from admission 6. Seizure disorder - c/w Keppra 1,000 BID 7. HTN 8. Hypernatremia - possibly 2/2 iatrogenic fluid overload 9. Anxiety 7. Urinary incontinence - c/w indwelling Wilson 8. 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 DLP - c/w statin 10 DM2 - c/w ISS 11. Hx of colon CA 12. Psoriasis 13. Hx of NONI - no CPAP use 14. Morbid obesity 15. GI prophylaxis - off protonix 16. DVT prophylaxis - off heparin 17. Code status: DNR / DNI DISCHARGE CONDITION: DISPOSITION: Patient was transferred out of the ICU after he was made comfort measures. His therapies were discontinued. He was made comfortable with morphine, ativan, atropine and supplemental oxygen. Family was present at the bedside throughout his hospital course. Patient was pronounced on 01/15/17. TIME SPENT ON DISCHARGE: Greater than 35 minutes. Vital Signs/I&Os Vital Signs Date Time Temp Pulse Resp B/P Pulse Ox O2 Delivery O2 Flow Rate FiO2 01/15/17 09:15 Aerosol Mask 10.0 98 01/15/17 06:12 68 01/14/17 22:05 38 01/14/17 21:00 113 155/78 01/14/17 20:00 101.0 I&O- Last 24 Hours up to 6 AM 01/15/17 06:00 Intake Total 1746 ml Output Total 550 ml Balance 1196 ml Microbiology Microbiology 01/13/17 Blood Culture - Preliminary, Resulted No growth after 24 hours . All specim... 01/12/17 Blood Culture - Preliminary, Resulted No Growth after 48 hours. All Specime... 01/13/17 Gram Stain - Final, Complete 01/13/17 CSF Culture - Final, Complete 01/13/17 - Final, Complete Herpes Simplex Virus 1 01/13/17 Viral Culture, Received Pending 01/13/17 Respiratory Virus Panel (PCR) (CARLOS) - Final, Complete 01/13/17 Urine Culture - Final, Complete Medications Scheduled Alprazolam (Xanax) 0.25 Mg Tab 0.25 MG PO DAILY (Reported) Aspirin (Aspir-81) 81 Mg Tab 81 MG PO DAILY (Reported) Atorvastatin Calcium (Atorvastatin Calcium) 10 Mg Tab 10 MG PO QHS (Reported) Cholecalciferol (Vitamin D3) 2,000 Unit Tab 2,000 UNIT PO DAILY (Reported) Lisinopril (Lisinopril) 10 Mg Tab 10 MG PO DAILY (Reported) Memantine Hydrochloride (Namenda) 10 Mg Tab 10 MG PO BID (Reported) Sertraline Hcl (Sertraline HCl) 50 Mg Tab 50 MG PO QHS (Reported) Allergies Coded Allergies: No Known Allergies (Verified Allergy, Unknown, 09/19/04) EMMANUEL RIDDLE MD Jan 15, 2017 16:47
[2017-01-16 00:06] LABS: HSV TYPE I IgM AB <1:10 titer (<1:10); HSV TYPE II IgM ABY <1:10 titer (<1:10)
== END 2017-01-15 23:55 | disposition expired | DRG 75 ==
LOC: M PCU 15:36 → M ICU 01-13 16:58 → M MSPAV 01-14 22:43
PROVIDERS: ADMIT Internal Medicine Nephrology; ATTEND Internal Medicine
PROC: 009U3ZX Drainage of Spinal Canal, Percutaneous Approach, Diagnostic (ICD-10-PCS; principal; 2017-01-13)
DX: B00.3 Herpesviral meningitis (principal); I63.9 Cerebral infarction, unspecified; G93.41 Metabolic encephalopathy; J96.01 Acute respiratory failure with hypoxia; L89.153 Pressure ulcer of sacral region, stage 3; E87.0 Hyperosmolality and hypernatremia; Z66 Do not resuscitate; Z51.5 Encounter for palliative care; I50.9 Heart failure, unspecified; G30.9 Alzheimer's disease, unspecified; L40.9 Psoriasis, unspecified; G47.33 Obstructive sleep apnea (adult) (pediatric); E11.9 Type 2 diabetes mellitus without complications; E87.70 Fluid overload, unspecified; I10 Essential (primary) hypertension; E78.5 Hyperlipidemia, unspecified; F41.8 Other specified anxiety disorders; G40.909 Epilepsy, unspecified, not intractable, without status epilepticus; F02.80 Dementia in other diseases classified elsewhere, unspecified severity, without behavioral disturbance, psychotic disturbance, mood disturbance, and anxiety; R32 Unspecified urinary incontinence; E66.01 Morbid (severe) obesity due to excess calories; Z85.038 Personal history of other malignant neoplasm of large intestine; Z79.82 Long term (current) use of aspirin; Z79.899 Other long term (current) drug therapy; Z90.49 Acquired absence of other specified parts of digestive tract